=== PATIENT | male | born 1980 | race Hispanic/Latino ===

== ENCOUNTER 2020-03-12 19:29 | Emergency (ER) | payer MEDICAID, OTHER ==
[~2020-03-12 19:29] MED LIST: FIORIT PO; LEVE-43 PO; METH500T PO
[2020-03-12] MEDS ORDERED: ONDANSETRON HCL 4 MG/2 ML VIAL ONE (20:04)
[2020-03-12] MEDS ORDERED: NITROGLYCERIN 1GM/1 INCH PACKET TD ONE (20:04)
[2020-03-12] MEDS ORDERED: MORPHINE SULFATE 2 MG/ML 1ML SYG ONE (20:04)
[2020-03-12] MEDS ORDERED: FAMOTIDINE/PF 20 MG/2 ML VIAL IV ONE (20:05)
[2020-03-12 20:11] LABS: APPEARANCE,URINE Clear (CLEAR); BILIRUBIN,URINE Negative (NEGATIVE); COLOR,URINE Yellow (YELLOW); GLUCOSE, URINE (UA) Negative (NEGATIVE); KETONES,URINE Negative (NEGATIVE); LEUKOCYTE ESTERASE ,URINE Negative (NEGATIVE); NITRATE,URINE Negative (NEGATIVE); OCCULT BLOOD,URINE Negative (NEGATIVE); PH,URINE 7.5 (5.0-8.0); PROTEIN,URINE POS 1+ mg/dL (NEGATIVE); UROBILINOGEN,URINE 0.2 mg/dL (0.2-1.0)
[2020-03-12 20:12] LABS: BASOPHILS % (AUTO) 1.2 % (0.0-5.0); EOSINOPHILS % (AUTO) 0.7 % (0.0-8.0); HEMATOCRIT 46.6 % (42-54); LYMPHOCYTES % (AUTO) 23.7 % (21.0-51.0); MEAN CORPUSCULAR HEMOGLOBIN 30.8 pg (27.0-33.0); MEAN CORPUSCULAR VOLUME 88.1 fL (79-99); MONOCYTES % (AUTO) 6.1 % (3.0-13.0); NEUTROPHILS % (AUTO) 67.8 % (40.0-77.0); PLATELET COUNT (AUTO) 249 K/uL (130-400); RED BLOOD CELL COUNT(AUTO) 5.29 MIL/uL (4.50-6.20); RED CELL DISTRIBUTION WIDTH 11.9 % (11.0-15.5); WHITE BLOOD COUNT (AUTO) 8.5 K/uL (4.8-10.8)
[2020-03-12 20:19] LABS: AMPHET/METH SCREEN,URINE NEGATIVE (NEGATIVE); BARBITURATE SCREEN, URINE NEGATIVE (NEGATIVE); BENZODIAZEPINES SCREEN,URINE NEGATIVE (NEGATIVE); CANNABINOID SCREEN,URINE NEGATIVE (NEGATIVE); COCAINE SCREEN,URINE NEGATIVE (NEGATIVE); OPIATE SCREEN,URINE NEGATIVE (NEGATIVE); PHENCYCLIDINE SCREEN,URINE NEGATIVE (NEGATIVE)
[2020-03-12 20:24] LABS: CREATININE 1.1 mg/dL (0.5-1.5); POTASSIUM 3.3 mmol/L (3.5-5.1)
[2020-03-12 20:25] LABS: INR 0.94 (0.85-1.15); PROTHROMBIN TIME 10.2 SEC (9.6-11.6)
[2020-03-12 20:28] LABS: ALBUMIN 4.8 g/dL (3.5-5.0); BILIRUBIN,TOTAL 0.5 mg/dL (0.2-1.0); TOTAL PROTEIN, SERUM 8.7 g/dL (6.0-8.3)
[2020-03-12 20:38] LABS: B-TYPE NATRIURETIC PEPTIDE 6 pg/mL (0-100)
[2020-03-12 20:43] LABS: BACTERIA,URINE Rare /HPF (None Seen); RBC,URINE 0-1 /HPF (0-1); WBC,URINE 0-1 /HPF (0-1)
[2020-03-12 20:44] LABS: SQUAMOUS EPITHELIAL CELL,UR Rare /HPF (0-2)
== END 2020-03-12 22:19 | disposition home or self-care (01) ==
LOC: EDH 19:29
DX: R10.13 Epigastric pain (principal); M54.5 Low back pain; I10 Essential (primary) hypertension; Z72.0 Tobacco use
CPT/HCPCS: 36415; 71045; 80053; 80305; 81001; 82550; 83690; 83880; 84484; 85025; 85610; 85730; 93005; 96374; 96375; 99285; J2405; J3490